=== PATIENT | female | born 1940 | race Caucasian/White ===

== ENCOUNTER 2019-01-27 09:45 | Day surgery (SDC) | payer MEDICARE, BC ==
[2019-01-26 10:14] VITALS: BMI 28.6
[~2019-01-27 09:45] MED LIST: LACTATED RINGERS 1,000 ML IV SCH; LIDOCAINE 1% 20 ML VIAL (10MG/ML) FOR IV START INTRADERMA PRN
[2019-01-27 10:54] VITALS: RESP 16; TEMP 97.4
[2019-01-27] MEDS ORDERED: PROPOFOL 10 MG/ML 20 ML VIAL IV ONE (11:15)
[2019-01-27] MEDS ORDERED: LIDOCAINE 1% INJ 10MG/ML (20 ML MDV) ONE (11:15)
--- NOTE | 2019-01-27 11:33 | P.PCN ---
Date of Procedure: 01/27/19 Procedure(s) Performed: BRIEF HISTORY: Patient is a 78-year-old pleasant male, scheduled for an elective colonoscopy as a part of evaluation of chronic diarrhea for the last 3 months duration. She has almost daily from 5-6 a day which are loose to watery in consistency but no blood or mucus in the stool. She lost 25 pounds since onset of the symptoms. Stool studies were negative. In view of this she is scheduled for colonoscopy to Rey further. PROCEDURE PERFORMED: Colonoscopy with random biopsies. PREOPERATIVE DIAGNOSIS: Diarrhea and weight loss of 3 months duration. IV sedation per Anesthesia. PROCEDURE: After informed consent was obtained, the patient, was brought into the endoscopy unit. IV sedation was administered by Anesthesia under continuous monitoring. Digital rectal examination was normal. Initially the Olympus CF-160 flexible video colonoscope was then inserted in the rectum, gradually advanced into the cecum without any difficulty. Careful examination was performed as the scope was gradually being withdrawn. Ileocecal valve and the appendiceal orifice were visualized and appeared normal. Prep was excellent. Mucosa of the cecum, ascending colon, transverse colon, descending colon, sigmoid colon, and rectum appeared normal. Scattered sigmoid diverticula seen. Random biopsies were done from ascending and descending colon to rule out microscopic/collagenous colitis. Retroflexion was performed in the rectum and no lesions were seen. The patient tolerated the procedure well. IMPRESSION: Normal-appearing colon from rectum to cecum with no evidence of colitis or colorectal neoplasia . Diffuse scattered diverticulosis. RECOMMENDATIONS: Findings of this examination were discussed with the patient as well as her family. She was advised to follow with the biopsy results. In the meantime we will obtain labs for celiac serology and she'll be seen in o ffice in 1 week..
[2019-01-27 11:58] VITALS: BP 118/76; PULSE 74
[2019-01-27 20:21] LABS: Gliadin AB IgA, Deaminated NEGATIVE (NEGATIVE); Gliadin AB IgA, Unit 0.4 U/mL
[2019-01-27 20:24] LABS: Gliadin AB IgG, Deaminated NEGATIVE (NEGATIVE)
== END 2019-01-27 12:49 | disposition home or self-care (01) ==
LOC: ORWHC2ENDO 09:45
PROVIDERS: ATTEND Internal Medicine Gastroenterology
DX: K52.832 Lymphocytic colitis (principal); K57.30 Diverticulosis of large intestine without perforation or abscess without bleeding; I48.91 Unspecified atrial fibrillation; I10 Essential (primary) hypertension; E78.5 Hyperlipidemia, unspecified; Z79.01 Long term (current) use of anticoagulants; Z79.890 Hormone replacement therapy; Z79.899 Other long term (current) drug therapy; R63.4 Abnormal weight loss; Z68.27 Body mass index [BMI] 27.0-27.9, adult
CPT/HCPCS: 88305; 83516 ×4; 45380; J2001; J2704

== ENCOUNTER 2023-10-09 09:58 | Emergency (ER) | payer MEDICARE, BC ==
--- NOTE | 2023-10-09 10:53 | ED ---
Arrhythmia/Palpitations HPI - General Chief Complaint: Arrhythmia/Palpitations Stated Complaint: Abn Labs Time Seen by Provider: 10/09/23 10:12 Source: patient, RN notes reviewed Mode of arrival: ambulatory Limitations: no limitations - History of Present Illness Initial Comments: This is an 83-year-old female with history of A-fib on Xarelto who presents emergency department chief complaint of heart palpitations. Patient states that over the past 3 weeks, that are heart rate has been elevated while she is checking her blood pressure at home ranging in the high 90s into the 120s. Patient states that she will experience heart palpitations during the day. She denies current chest pain or pressure, dizziness, lightheadedness, exertional dyspnea, paroxysmal nocturnal dyspnea, extremity edema. Patient saw her tie bucker on Friday where they increased the dose of her metoprolol to 25 mg 2 times a day. She states that she took 3 tabs of the 25 mg this morning. - Related Data Home Medications Medication Instructions Recorded Confirmed Levothyroxine Sodium [Synthroid] 75 mcg PO DAILY 09/29/15 10/09/23 Ascorbic Acid [Vitamin C] 500 mg PO DAILY 11/28/22 10/09/23 Cholecalciferol [Vitamin D3 (25 25 mcg PO DAILY 11/28/22 10/09/23 Mcg = 1000 Iu)] Latanoprost Ophth [Xalatan 0.005%] 1 drop BOTH EYES HS 11/28/22 10/09/23 diphenhydrAMINE [Benadryl] 25 mg PO HS 11/28/22 10/09/23 Apixaban [Eliquis] 2.5 mg PO BID 10/09/23 10/09/23 Atorvastatin [Lipitor] 40 mg PO DAILY 10/09/23 10/09/23 Budesonide [Entocort EC] See Taper PO DIRECTED 10/09/23 10/09/23 Diclofenac Sodium Gel [Voltaren 1% 1 applic TOPICAL QID PRN 10/09/23 10/09/23 Gel] Dorzolamide 2% [Trusopt 2%] 1 drops BOTH EYES BID 10/09/23 10/09/23 Furosemide [Lasix] 20 mg PO DAILY 10/09/23 10/09/23 Magnesium Citrate and Oxide 250 mg PO DAILY 10/09/23 10/09/23 [Magnesium] Metoprolol Succinate [Metoprolol 25 mg PO DAILY 10/09/23 10/09/23 Succinate ER] NIFEdipine XL [Procardia Xl] 30 mg PO DAILY 10/09/23 10/09/23 Vit C/E/Zn/Coppr/Lutein/Zeaxan 1 cap PO BID 10/09/23 10/09/23 [Preservision Areds 2 Softgel] Vitamin C/Biotin [Hair, Skin and 1 tab PO DAILY 10/09/23 10/09/23 Nails Chew] Allergies Allergy/AdvReac Type Severity Reaction Status Date / Time latex Allergy red skin Verified 10/09/23 13:12 and itching Review of Systems ROS Statement: Those systems with pertinent positive or pertinent negative responses have been documented in the HPI. ROS Other: All systems not noted in ROS Statement are negative. Past Medical History Past Medical History: Atrial Fibrillation, Cancer, Eye Disorder, Hyperlipidemia, Hypertension, Osteoarthritis (OA), Pneumonia, Renal Disease, Thyroid Disorder Additional Past Medical History / Comment(s): L breast cancer with mastectomy, stage 1 R breast cancer-removed during bx, pneumonia with sepsis, lymphatic colitis - under control, glaucoma, macular degeneration, watching kidney numbers - stage [address] Rajput in [place], some elevation in cholesterol but pt does not want to take medication. edema to ankles by mid day. urinary frequency History of Any Multi-Drug Resistant Organisms: None Reported Past Surgical History: Adenoidectomy, Cardiac Valve Replacement, Cholecystectomy, Heart Catheterization, Tonsillectomy Additional Past Surgical History / Comment(s): L mastectomy, R breast bx, bilateral cataracts, colonoscopy, endometrial cyst removed, mitral valve replacement 2015 Past Anesthesia/Blood Transfusion Reactions: No Reported Reaction Past Psychological History: No Psychological Hx Reported Smoking Status: Former smoker - Past Family History Father Family Medical History: Cancer Additional Family Medical History / Comment(s): Father in his mid 70's of metastatic prostate cancer. Mother Family Medical History: No Reported History Additional Family Medical History / Comment(s): Mother at age 100yrs. General Exam Limitations: no limitations General appearance: alert, in no apparent distress Head exam: Present: atraumatic, normocephalic, normal inspection Eye exam: Present: normal appearance, PERRL, EOMI. Absent: scleral icterus, c onjunctival injection, periorbital swelling ENT exam: Present: normal exam, mucous membranes moist Neck exam: Present: normal inspection. Absent: tenderness, meningismus, lymphadenopathy Respiratory exam: Present: normal lung sounds bilaterally. Absent: respiratory distress, wheezes, rales, rhonchi, stridor Cardiovascular Exam: Present: irregular rhythm (Atrial fibrillation). Absent: regular rate, normal rhythm GI/Abdominal exam: Present: soft, normal bowel sounds. Absent: distended, tenderness, guarding, rebound, rigid Extremities exam: Present: normal inspection, full ROM, normal capillary refill. Absent: tenderness, pedal edema, joint swelling, calf tenderness Back exam: Present: normal inspection Neurological exam: Present: alert, oriented X3, CN II-XII intact Psychiatric exam: Present: normal affect, normal mood Skin exam: Present: warm, dry, intact, normal color. Absent: rash Course Vital Signs 10/09/23 10/09/23 10/09/23 10:15 14:35 16:10 Temperature 97.5 F L Pulse Rate 73 114 H 107 H Respiratory 16 16 16 Rate Blood Pressure 137/77 136/75 124/82 O2 Sat by Pulse 97 97 96 Oximetry Medical Decision Making - Medical Decision Making Was pt. sent in by a medical professional or institution (, PA, BOTTLE INSPECTOR, urgent care, hospital, or fdc...) When possible be specific @ -No Did you speak to anyone other than the patient for history (EMS, parent, family, police, friend...)? What history was obtained from this source @ -No Did you review nursing and triage notes (agree or disagree)? Why? @ -I reviewed and agree with nursing and triage notes Were old charts reviewed (outside hosp., previous admission, EMS record, old EKG, old radiological studies, urgent care reports/EKG's, fdc records)? Report findings @ -No old charts were reviewed Differential Diagnosis (chest pain, altered mental status, abdominal pain women, abdominal pain men, vaginal bleeding, weakness, fever, dyspnea, syncope, headache, dizziness, GI bleed, back pain, seizure, CVA, palpatations, mental health, musculoskeletal)? @ -Differential Palpitations Ventricular arrhythmias, atrial arrhythmias, myocardial infarction, anemia, thyrotoxicosis, electrolyte imbalance, hypokalemia, pulmonary embolism, pulmonar y disease, drugs, alcohol, anxiety, stress.... This is not meant to be an all-inclusive list. EKG interpreted by me (3pts min.). @ -Completed at 1024, show fibrillation, right bundle branch block, ventricular rate 74. X-rays interpreted by me (1pt min.). @ -None done CT interpreted by me (1pt min.). @ -None done U/S interpreted by me (1pt. min.). @ -None done What testing was considered but not performed or refused? (CT, X-rays, U/S, labs)? Why? @ -None What meds were considered but not given or refused? Why? @ -None Did you discuss the management of the patient with other professionals (prof raj i.e. , PA, BOTTLE INSPECTOR, lab, RT, psych nurse, secondary social studies teacher, illuminating engineer, teacher, loan servicing officer, renal case manager)? Give summary @ -No Was smoking cessation discussed for >3mins.? @ -No Was critical care preformed (if so, how long)? @ -No Were there social determinants of health that impacted care today? How? (Homelessness, low income, unemployed, alcoholism, drug addiction, transportation, low edu. Level, literacy, decrease access to med. care, half-way, rehab)? @ -No Was there de-escalation of care discussed even if they declined (Discuss DNR or withdrawal of care, Hospice)? DNR status @ -No What co-morbidities impacted this encounter? (DM, HTN, Smoking, COPD, CAD, Cancer, CVA, ARF, Chemo, Hep., AIDS, mental health diagnosis, sleep apnea, morbid obesity)? @ -None Was patient admitted / discharged? Hospital course, mention meds given and route, prescriptions, significant lab abnormalities, going to OR and other pertinent info. @ -83-year-old female with palpitations. On initial review of patient's vitals her heart rate is stable. EKG obtained in addition to labs, patient is in agreement. EKG shows atrial fibrillation without rapid ventricular response. During auscultation patient's heart rate is in the 70s. CBC unremarkable, CMP reveals elevated BUN of 45 and creatinine 2.07 which is similar to previous and correlates with diagnosis of chronic kidney disease. troponin nonelevated. Discussion with patient at bedside recommend continuing to take 3 tablets of the metoprolol until she is able to report to her tie bucker for further evaluation. Patient is asymptomatic during her duration on the emergency department and is comfortable with discharge. All questions answered at bedside, strict return parameters discussed with the patient. Case discussed with Dr. Kent Undiagnosed new problem with uncertain prognosis? @ -No Drug Therapy requiring intensive monitoring for toxicity (Heparin, Nitro, Insulin, Cardizem)? @ -No Were any procedures done? @ -No Diagnosis/symptom? @ -Atrial fibrillation, palpitations Acute, or Chronic, or Acute on Chronic? @ -Acute Uncomplicated (without systemic symptoms) or Complicated (systemic symptoms)? @ -Uncomplicated Side effects of treatment? @ -No Exacerbation, Progression, or Severe Exacerbation? @ -No Poses a threat to life or bodily function? How? (Chest pain, [place], [place], pneumonia, PE, COPD, DKA, ARF, appy, cholecystitis, CVA, Diverticulitis, Homicidal, Suicidal, threat to staff... and all critical care pts) @ -No - Lab Data Result diagrams: 10/09/23 11:23 10/09/23 11:23 Lab Results 10/09/23 10/09/23 10/09/23 Range/Units 11:23 11:23 11:23 WBC 9.5 (3.8-10.6) k/uL RBC 3.73 L (3.80-5.40) m/uL Hgb 11.5 (11.4-16.0) gm/dL Hct 37.1 (34.0-46.0) % MCV 99.3 (80.0-100.0) fL MCH 30.9 (25.0-35.0) pg MCHC 31.1 (31.0-37.0) g/dL RDW 16.1 H (11.5-15.5) % Plt Count 254 (150-450) k/uL MPV 8.5 Neutrophils % 76 % Lymphocytes % 15 % Monocytes % 6 % Eosinophils % 2 % Basophils % 0 % Neutrophils # 7.2 (1.3-7.7) k/uL Lymphocytes # 1.4 (1.0-4.8) k/uL Monocytes # 0.6 (0-1.0) k/uL Eosinophils # 0.2 (0-0.7) k/uL Basophils # 0.0 (0-0.2) k/uL Hypochromasia Slight Anisocytosis Slight Macrocytosis Slight Sodium 141 (137-145) mmol/L Potassium 3.8 (3.5-5.1) mmol/L Chloride 110 H (98-107) mmol/L Carbon Dioxide 25 (22-30) mmol/L Anion Gap 6 mmol/L BUN 45 H (7-17) mg/dL Creatinine 2.07 H (0.52-1.04) mg/dL Est GFR (CKD-EPI)AfAm 25 (>60 ml/min/1.73 sqM) Est GFR (CKD-EPI)NonAf 22 (>60 ml/min/1.73 sqM) Glucose 84 (74-99) mg/dL Calcium 9.2 (8.4-10.2) mg/dL Magnesium 1.8 (1.6-2.3) mg/dL Total Bilirubin 0.5 (0.2-1.3) mg/dL AST 39 H (14-36) U/L ALT 57 H (4-34) U/L Alkaline Phosphatase 110 (38-126) U/L Troponin I <0.012 (0.000-0.034) ng/mL Total Protein 7.4 (6.3-8.2) g/dL Albumin 3.8 (3.5-5.0) g/dL Disposition Clinical Impression: Atrial fibrillation, Tachycardia, Heart palpitations Narrative: Return to the emergency department symptoms worsen or do not improve. Follow-up with your tie bucker for further recommendation and adjustment of your medications. Disposition: HOME SELF-CARE Condition: Good Instructions (If sedation given, give patient instructions): Heart Palpitations (ED) Is patient prescribed a controlled substance at d/c from ED?: No Referrals: Roland Meehan MD [Primary Care Provider] - 1-2 days Time of Disposition: 15:55
[2023-10-09 11:12] VITALS: RESP 16; TEMP 97.5
[2023-10-09 11:52] LABS: ALT 57 U/L (4-34); AST 39 U/L (14-36); African American GFR (CKD) 25 (>60 ml/min/1.73 sqM); Albumin 3.8 g/dL (3.5-5.0); Alkaline Phosphatase 110 U/L (38-126); Anion Gap 6 mmol/L; Blood Urea Nitrogen 45 mg/dL (7-17); Calcium 9.2 mg/dL (8.4-10.2); Carbon Dioxide 25 mmol/L (22-30); Chloride 110 mmol/L (98-107); Glucose 84 mg/dL (74-99); Magnesium 1.8 mg/dL (1.6-2.3); Non-African American GFR(CKD) 22 (>60 ml/min/1.73 sqM); Potassium 3.8 mmol/L (3.5-5.1); Sodium 141 mmol/L (137-145); Total Bilirubin 0.5 mg/dL (0.2-1.3); Total Protein 7.4 g/dL (6.3-8.2)
[2023-10-09 12:01] LABS: Anisocytosis Slight; Basophils % (A) 0 %; Eosinophils # (A) 0.2 k/uL (0-0.7); Eosinophils % (A) 2 %; HCT 37.1 % (34.0-46.0); HGB 11.5 gm/dL (11.4-16.0); Hypochromasia Slight; Lymphocytes # (A) 1.4 k/uL (1.0-4.8); Lymphocytes % (A) 15 %; MCH 30.9 pg (25.0-35.0); MCHC 31.1 g/dL (31.0-37.0); MCV 99.3 fL (80.0-100.0); Macrocytosis Slight; Mean Platelet Volume 8.5; Monocytes # (A) 0.6 k/uL (0-1.0); Monocytes % (A) 6 %; Neutrophils # (A) 7.2 k/uL (1.3-7.7); Neutrophils % (A) 76 %; Platelet Count 254 k/uL (150-450); RBC 3.73 m/uL (3.80-5.40); RDW 16.1 % (11.5-15.5); WBC 9.5 k/uL (3.8-10.6)
[2023-10-09 16:50] VITALS: BP 124/82; PULSE 107
== END 2023-10-09 16:11 | disposition home or self-care (01) ==
LOC: EC 09:58
DX: R00.0 Tachycardia, unspecified (principal); I48.91 Unspecified atrial fibrillation; Z87.891 Personal history of nicotine dependence; Z91.040 Latex allergy status
CPT/HCPCS: 36415; 80053; 83735; 84484; 85025; 93005; 99285

== ENCOUNTER → 2024-10-06 | Outpatient (CLI) | payer MEDICARE, BC ==
--- NOTE | 2024-10-07 06:56 | MR ---
EXAMINATION TYPE: MR brain wo con DATE OF EXAM: 10/06/2024 COMPARISON: NONE HISTORY: Double vision LT, 6th nerve palsy, Hx breast cancer, TECHNIQUE: Multiplanar, multisequence imaging of the brain and brainstem is performed without IV cont rast. FINDINGS: Diffusion weighted images demonstrate no evidence of a recent infarct or other diffusion abnormality. There is moderate ventricular and sulcal prominence. Prominent CSF is seen superiorly. There are smal l foci of T2 hyperintensity scattered throughout the white matter bilaterally. Approximately 10 scatt ered lesions are seen. Midline structures demonstrate normal morphology. The craniocervical junction appears within normal limits. Normal vascular flow voids are present. Left vertebral artery is noted dominant. Bilateral ap hakia is present. Mild mucosal thickening involving bilateral ethmoid sinuses is seen. IMPRESSION: 1. No MRI evidence for recent infarct. 2. Moderate to severe diffuse cerebral atrophy and mild probable chronic small vessel ischemic change s are appreciated. 3. Mild bilateral chronic ethmoid sinusitis. [facility], , 10/07/2024 6:53 AM
== END | disposition home or self-care (01) ==
LOC: RADMRIMAIN 19:38
PROVIDERS: ATTEND Ophthalmology
DX: G31.9 Degenerative disease of nervous system, unspecified (principal); J32.2 Chronic ethmoidal sinusitis; H53.2 Diplopia
CPT/HCPCS: 70551

== ENCOUNTER 2024-11-11 09:21 | Inpatient (IN) | payer MEDICARE, BC ==
[2024-11-11 10:39] LABS: Basophils # (A) 0.06 10*3/uL (0.00-0.10); Basophils % (A) 0.7 %; Eosinophils # (A) 0.16 10*3/uL (0.04-0.35); Eosinophils % (A) 1.9 %; HCT 39.7 % (37.2-46.3); HGB 13.1 g/dL (12.0-15.0); Lymphocytes % (A) 16.5 %; MCH 31.2 pg (27.0-32.0); MCV 94.5 fL (80.0-97.0); Mean Platelet Volume 9.7 fL (9.5-12.2); Monocytes # (A) 0.63 10*3/uL (0.20-1.00); Monocytes % (A) 7.4 %; Neutrophils # (A) 6.21 10*3/uL (1.80-7.70); Neutrophils % (A) 73.3 %; Platelet Count 257 10*3/uL (140-440); RDW 15.3 % (11.5-14.5); WBC 8.48 10*3/uL (4.50-10.00)
--- NOTE | 2024-11-11 10:45 | ED ---
Arrhythmia/Palpitations HPI - General Source: patient, RN notes reviewed Mode of arrival: ambulatory Limitations: no limitations <Maximo Sexton - Last Filed: 11/11/24 10:44> <Valorie Kent - Last Filed: 11/17/24 23:12> - General Chief Complaint: Arrhythmia/Palpitations Stated Complaint: High blood pressure Time Seen by Provider: 11/11/24 09:28 - History of Present Illness Initial Comments: QN- 84-year-old female presents emergency department with chief complaint of hypertension. Patient states that her blood pressure has been elevated she is monitoring at home blood pressure is normally well-controlled she states she was advised to see her heart rate monitored at home by her sanitation technician. Patient does make she has a history of A-fib is on flecainide and had recent increase of her Cardizem. She had issues with metoprolol in the past. She has no complaint of chest pain now but states that she has had some intermittent symptoms. (Maximo Sexton) 84-year-old female presents emergency department with high blood pressure and high heart rate. Patient states as of 2 weeks ago she started to monitor her vitals because her sanitation technician told her to. She has noticed that her blood pressure and heart rate have been high. Patient does have a history of A-fib. They have adjusted around her blood pressure medications. Patient is on flecainide. They increased her Cardizem. Has been taking her medications as instructed with continued high heart rate. She has no chest pain. No headache or visual changes. No other alleviating, precipitating or modifying factors (Valorie Kent) - Related Data Home Medications Medication Instructions Recorded Confirmed Latanoprost Ophth [Xalatan 0.005%] 1 drop BOTH EYES HS 11/28/22 11/11/24 diphenhydrAMINE [Benadryl] 25 mg PO HS 11/28/22 11/11/24 Apixaban [Eliquis] 2.5 mg PO BID 10/09/23 11/11/24 Atorvastatin [Lipitor] 40 mg PO DAILY 10/09/23 11/11/24 Dorzolamide 2% [Trusopt 2%] 1 drop BOTH EYES BID 10/09/23 11/11/24 Furosemide [Lasix] 20 mg PO DAILY 10/09/23 11/11/24 Vit C/E/Zn/Coppr/Lutein/Zeaxan 1 cap PO BID-W/MEALS 10/09/23 11/11/24 [Preservision Areds 2 Softgel] Co Q-10(Unknown Dose) 1 cap PO DAILY 11/11/24 11/11/24 Diclofenac Sodium Gel [Voltaren 1% 1 applic TOPICAL DAILY 11/11/24 11/11/24 Gel] Hair,Skin And Nails(Vitamin 1 tab PO DAILY 11/11/24 11/11/24 D3/Magnesium/Vitamin C/Biotin) Levothyroxine Sodium [Synthroid] 75 mcg PO DAILY 11/11/24 11/11/24 Vitamin B Complex 1 cap PO DAILY 11/11/24 11/11/24 Previous Rx's Medication Instructions Recorded Diltiazem Cd [Cardizem CD] 360 mg PO DAILY #60 cap 11/15/24 Allergies Allergy/AdvReac Type Severity Reaction Status Date / Time amiodarone Allergy Unknown Verified 11/12/24 10:28 latex Allergy red skin Verified 11/11/24 16:47 and itching metoprolol [From Lopressor] Allergy Dyspnea Verified 11/12/24 10:27 sotalol Allergy Dyspnea Verified 11/12/24 10:27 Review of Systems ROS Other: All systems not noted in ROS Statement are negative. <Maximo Sexton - Last Filed: 11/11/24 10:44> ROS Other: All systems not noted in ROS Statement are negative. <Valorie Kent - Last Filed: 11/17/24 23:12> ROS Statement: Those systems with pertinent positive or pertinent negative responses have been documented in the HPI. Past Medical History Past Medical History: Atrial Fibrillation, Cancer, Eye Disorder, Hyperlipidemia, Hypertension, Osteoarthritis (OA), Pneumonia, Renal Disease, Thyroid Disorder Additional Past Medical History / Comment(s): L breast cancer with mastectomy, stage 1 R breast cancer-removed during bx, pneumonia with sepsis, lymphatic colitis - under control, glaucoma, macular degeneration, stage 3 kidney disease, intermittent edema to ankles by mid day. urinary frequency. History of Any Multi-Drug Resistant Organisms: None Reported Past Surgical History: Adenoidectomy, Cardiac Valve Replacement, Cholecystectomy, Heart Catheterization, Tonsillectomy Additional Past Surgical History / Comment(s): L mastectomy, R breast bx, bilateral cataracts, colonoscopy, endometrial cyst removed, mitral valve replacement 2016. November 2022 NATE/cardioversion. Past Anesthesia/Blood Transfusion Reactions: No Reported Reaction Past Psychological History: No Psychological Hx Reported Smoking Status: Former smoker - Past Family History Father Family Medical History: Cancer Additional Family Medical History / Comment(s): Father in his mid 70's of metastatic prostate cancer. Mother Family Medical History: No Reported History Additional Family Medical History / Comment(s): Mother at age 100yrs. <Maximo Sexton - Last Filed: 11/11/24 10:44> General Exam Limitations: no limitations <Maximo Sexton - Last Filed: 11/11/24 10:44> General appearance: alert, in no apparent distress Head exam: Present: atraumatic, normocephalic, normal inspection Eye exam: Present: normal appearance, PERRL, EOMI. Absent: scleral icterus, conjunctival injection, periorbital swelling ENT exam: Present: normal exam, mucous membranes moist Neck exam: Present: normal inspection. Absent: tenderness, meningismus, lympha denopathy Respiratory exam: Present: normal lung sounds bilaterally. Absent: respiratory distress, wheezes, rales, rhonchi, stridor Cardiovascular Exam: Present: tachycardia, irregular rhythm, normal heart sounds. Absent: systolic murmur, diastolic murmur, rubs, gallop, clicks GI/Abdominal exam: Present: soft, normal bowel sounds. Absent: distended, tenderness, guarding, rebound, rigid Extremities exam: Present: normal inspection, full ROM, normal capillary refill. Absent: tenderness, pedal edema, joint swelling, calf tenderness Back exam: Present: normal inspection Neurological exam: Present: alert, oriented X3, CN II-XII intact Psychiatric exam: Present: normal affect, normal mood Skin exam: Present: warm, dry, intact, normal color. Absent: rash <Valorie Kent - Last Filed: 11/17/24 23:12> - General Exam Comments Initial Comments: Visual Physical Exam Vital signs reviewed General: Well-appearing, nontoxic, no acute distress. Head: Normocephalic, atraumatic Eyes: PERRLA, EOMI ENT: Airway patent Chest: Nonlabored breathing Skin: No visual rash, normal skin tone Neuro: Alert and oriented 3 Musculoskeletal: No gross abnormalities (Maximo Sexton) Course Vital Signs 11/11/24 11/11/24 11/11/24 09:36 12:26 13:51 Temperature 97.6 F Pulse Rate 115 H 110 H 80 Pulse Rate [ Log Brander ] Respiratory 16 18 Rate Blood Pressure 150/88 156/94 151/92 O2 Sat by Pulse 97 98 96 Oximetry 11/11/24 11/11/24 11/11/24 16:00 16:05 18:00 Temperature Pulse Rate 74 71 Pulse Rate [ 115 H Log Brander ] Respiratory 16 16 Rate Blood Pressure 145/74 158/86 O2 Sat by Pulse 96 96 Oximetry 11/11/24 11/12/24 11/12/24 20:34 01:00 02:43 Temperature 98.1 F 98.1 F 98.1 F Pulse Rate 89 74 94 Pulse Rate [ Log Brander ] Respiratory 19 17 20 Rate Blood Pressure 154/64 141/59 157/84 O2 Sat by Pulse 96 94 L 96 Oximetry 11/12/24 11/12/24 11/12/24 06:00 09:00 12:00 Temperature Pulse Rate 66 71 90 Pulse Rate [ Log Brander ] Respiratory 17 18 16 Rate Blood Pressure 144/63 159/90 139/78 O2 Sat by Pulse 96 97 97 Oximetry 11/12/24 11/12/24 16:00 17:48 Temperature Pulse Rate 61 63 Pulse Rate [ Log Brander ] Respiratory 18 16 Rate Blood Pressure 130/57 122/59 O2 Sat by Pulse 94 L 95 Oximetry Medical Decision Making - Lab Data Result diagrams: 11/11/24 10:19 <Maximo Sexton - Last Filed: 11/11/24 10:44> - Lab Data Result diagrams: 11/15/24 05:15 11/15/24 05:15 <Valorie Kent - Last Filed: 11/17/24 23:12> - Medical Decision Making I completed the quick note portion of this chart signed Maximo Sexton PA-C (Maximo Sexton) Was pt. sent in by a medical professional or institution (SURINDER Donohue, AUTO MECHANICS INSTRUCTOR, urgent care, hospital, or assisted...) When possible be specific @ -Patient was sent in by her cardiology office Did you speak to anyone other than the patient for history (EMS, parent, family, police, friend...)? What history was obtained from this source @ -No Did you review nursing and triage notes (agree or disagree)? Why? @ -I reviewed and agree with nursing and triage notes Were old charts reviewed (outside hosp., previous admission, EMS record, old EKG, old radiological studies, urgent care reports/EKG's, assisted records)? Report findings @ -No old charts were reviewed Differential Diagnosis (chest pain, altered mental status, abdominal pain women, abdominal pain men, vaginal bleeding, weakness, fever, dyspnea, syncope, headache, dizziness, GI bleed, back pain, seizure, CVA, palpatations, mental health, musculoskeletal)? @ -Differential Palpitations Ventricular arrhythmias, atrial arrhythmias, myocardial infarction, anemia, thyrotoxicosis, electrolyte imbalance, hypokalemia, pulmonary embolism, p ulmonary disease, drugs, alcohol, anxiety, stress.... This is not meant to be an all-inclusive list. EKG interpreted by me (3pts min.). @ -Yes and demonstrates A-fib with a rate of 116. NM interval 238. QRS 161. QTc of 440. Right bundle branch block. Left anterior fascicular block X-rays interpreted by me (1pt min.). @ -Not done CT interpreted by me (1pt min.). @ -None done U/S interpreted by me (1pt. min.). @ -None done What testing was considered but not performed or refused? (CT, X-rays, U/S, labs)? Why? @ -None What meds were considered but not given or refused? Why? @ -None Did you discuss the management of the patient with other professionals (professionals i.e. , PA, AUTO MECHANICS INSTRUCTOR, lab, RT, psych nurse, home health care social worker, auto mechanics instructor, teacher, licensed mortgage loan officer, keycase assembler)? Give summary @ -I spoke with Dr. Wyatt. He would like me to place the patient on a Cardizem drip. He recommends continuing the flecainide. He would like me to increase the Eliquis to 5 mg twice daily. He would like the patient admitted for cardioversion tomorrow Was smoking cessation discussed for >3mins.? @ -No Was critical care preformed (if so, how long)? @ -Yes, 35 minutes for management of A-fib with RVR Were there social determinants of health that impacted care today? How? (Homelessness, low income, unemployed, alcoholism, drug addiction, transportation, low edu. Level, literacy, decrease access to med. care, half-way, rehab)? @ -No Was there de-escalation of care discussed even if they declined (Discuss DNR or withdrawal of care, Hospice)? DNR status @ -No What co-morbidities impacted this encounter? (DM, HTN, Smoking, COPD, CAD, Cancer, CVA, ARF, Chemo, Hep., AIDS, mental health diagnosis, sleep apnea, morbid obesity)? @ -A-fib Was patient admitted / discharged? Hospital course, mention meds given and route, prescriptions, significant lab abnormalities, going to OR and other per tinent info. @ -Upon arrival patient seen and evaluated in hallway 19. Thorough history and physical exam was performed. IV access was established and laboratory studies are conducted. The results are discussed with Dr. Wyatt. He does recommend a Cardizem drip with admission for cardioversion tomorrow Undiagnosed new problem with uncertain prognosis? @ -No Drug Therapy requiring intensive monitoring for toxicity (Heparin, Nitro, Insulin, Cardizem)? @ -Cardizem Were any procedures done? @ -No Diagnosis/symptom? @ -A-fib with RVR Acute, or Chronic, or Acute on Chronic? @ -Acute on chronic Uncomplicated (without systemic symptoms) or Complicated (systemic symptoms)? @ -Complicated Side effects of treatment? @ -No Exacerbation, Progression, or Severe Exacerbation? @ -No Poses a threat to life or bodily function? How? (Chest pain, [place], [place], pneumonia, PE, COPD, DKA, ARF, appy, cholecystitis, CVA, Diverticulitis, Homicidal, Suicidal, threat to staff... and all critical care pts) @ -Yes this patient does have rapid heart rate (Valorie Kent) - Lab Data Lab Results 11/11/24 11/11/24 11/11/24 Range/Units 10:19 10:19 10:19 WBC 8.48 (4.50-10.00) 10*3/uL RBC 4.20 (4.10-5.20) 10*6/uL Hgb 13.1 (12.0-15.0) g/dL Hct 39.7 (37.2-46.3) % MCV 94.5 (80.0-97.0) fL MCH 31.2 (27.0-32.0) pg MCHC 33.0 (32.0-37.0) g/dL Plt Count 257 (140-440) 10*3/uL MPV 9.7 (9.5-12.2) fL Immature Gran % (Auto) 0.2 % Neutrophils % 73.3 % Lymphocytes % 16.5 % Monocytes % 7.4 % Eosinophils % 1.9 % Basophils % 0.7 % Immature Gran # 0.02 (0.00-0.04) 10*3/uL Neutrophils # 6.21 (1.80-7.70) 10*3/uL Lymphocytes # 1.40 (0.90-5.00) 10*3/uL Monocytes # 0.63 (0.20-1.00) 10*3/uL Eosinophils # 0.16 (0.04-0.35) 10*3/uL Basophils # 0.06 (0.00-0.10) 10*3/uL PT 11.1 (10.0-12.5) sec INR 1.0 (<1.2) APTT 30.8 H (22.0-30.0) sec Sodium 143 (137-145) mmol/L Potassium 4.0 (3.5-5.1) mmol/L Chloride 110 H (98-107) mmol/L Carbon Dioxide 22 (22-30) mmol/L Anion Gap 11 mmol/L BUN 32 H (7-17) mg/dL Creatinine 1.68 H (0.52-1.04) mg/dL Est GFR (CKD-EPI)AfAm 32 (>60 ml/min/1.73 sqM) Est GFR (CKD-EPI)NonAf 28 (>60 ml/min/1.73 sqM) Glucose 68 L (74-99) mg/dL Calcium 9.8 (8.4-10.2) mg/dL Magnesium 1.9 (1.6-2.3) mg/dL Total Bilirubin 0.8 (0.2-1.3) mg/dL AST 30 (14-36) U/L ALT 24 (4-34) U/L Alkaline Phosphatase 116 (38-126) U/L Troponin I (0.000-0.034) ng/mL Total Protein 8.3 H (6.3-8.2) g/dL Albumin 4.6 (3.5-5.0) g/dL TSH (0.465-4.680) mIU/L 11/11/24 11/11/24 11/12/24 Range/Units 10:19 12:30 09:55 WBC 7.76 (4.50-10.00) 10*3/uL RBC 3.90 L (4.10-5.20) 10*6/uL Hgb 12.2 (12.0-15.0) g/dL Hct 37.3 (37.2-46.3) % MCV 95.6 (80.0-97.0) fL MCH 31.3 (27.0-32.0) pg MCHC 32.7 (32.0-37.0) g/dL Plt Count 251 (140-440) 10*3/uL MPV 9.5 (9.5-12.2) fL Immature Gran % (Auto) 0.4 % Neutrophils % 75.0 % Lymphocytes % 18.4 % Monocytes % 3.6 % Eosinophils % 1.8 % Basophils % 0.8 % Immature Gran # 0.03 (0.00-0.04) 10*3/uL Neutrophils # 5.82 (1.80-7.70) 10*3/uL Lymphocytes # 1.43 (0.90-5.00) 10*3/uL Monocytes # 0.28 (0.20-1.00) 10*3/uL Eosinophils # 0.14 (0.04-0.35) 10*3/uL Basophils # 0.06 (0.00-0.10) 10*3/uL PT (10.0-12.5) sec INR (<1.2) APTT (22.0-30.0) sec Sodium (137-145) mmol/L Potassium (3.5-5.1) mmol/L Chloride (98-107) mmol/L Carbon Dioxide (22-30) mmol/L Anion Gap mmol/L BUN (7-17) mg/dL Creatinine (0.52-1.04) mg/dL Est GFR (CKD-EPI)AfAm (>60 ml/min/1.73 sqM) Est GFR (CKD-EPI)NonAf (>60 ml/min/1.73 sqM) Glucose (74-99) mg/dL Calcium (8.4-10.2) mg/dL Magnesium (1.6-2.3) mg/dL Total Bilirubin (0.2-1.3) mg/dL AST (14-36) U/L ALT (4-34) U/L Alkaline Phosphatase (38-126) U/L Troponin I <0.012 (0.000-0.034) ng/mL Total Protein (6.3-8.2) g/dL Albumin (3.5-5.0) g/dL TSH 3.820 (0.465-4.680) mIU/L 11/12/24 Range/Units 09:55 WBC (4.50-10.00) 10*3/uL RBC (4.10-5.20) 10*6/uL Hgb (12.0-15.0) g/dL Hct (37.2-46.3) % MCV (80.0-97.0) fL MCH (27.0-32.0) pg MCHC (32.0-37.0) g/dL Plt Count (140-440) 10*3/uL MPV (9.5-12.2) fL Immature Gran % (Auto) % Neutrophils % % Lymphocytes % % Monocytes % % Eosinophils % % Basophils % % Immature Gran # (0.00-0.04) 10*3/uL Neutrophils # (1.80-7.70) 10*3/uL Lymphocytes # (0.90-5.00) 10*3/uL Monocytes # (0.20-1.00) 10*3/uL Eosinophils # (0.04-0.35) 10*3/uL Basophils # (0.00-0.10) 10*3/uL PT (10.0-12.5) sec INR (<1.2) APTT (22.0-30.0) sec Sodium 141 (137-145) mmol/L Potassium 4.1 (3.5-5.1) mmol/L Chloride 111 H (98-107) mmol/L Carbon Dioxide 20 L (22-30) mmol/L Anion Gap 10 mmol/L BUN 26 H (7-17) mg/dL Creatinine 1.40 H (0.52-1.04) mg/dL Est GFR (CKD-EPI)AfAm 40 (>60 ml/min/1.73 sqM) Est GFR (CKD-EPI)NonAf 34 (>60 ml/min/1.73 sqM) Glucose 135 H (74-99) mg/dL Calcium 9.6 (8.4-10.2) mg/dL Magnesium (1.6-2.3) mg/dL Total Bilirubin (0.2-1.3) mg/dL AST (14-36) U/L ALT (4-34) U/L Alkaline Phosphatase (38-126) U/L Troponin I (0.000-0.034) ng/mL Total Protein (6.3-8.2) g/dL Albumin (3.5-5.0) g/dL TSH (0.465-4.680) mIU/L Disposition <Maximo Sexton - Last Filed: 11/11/24 10:44> Is patient prescribed a controlled substance at d/c from ED?: No Time of Disposition: 15:33 Decision to Admit Reason: Admit from EC Decision Date: 11/11/24 Decision Time: 15:33 <Valorie Kent - Last Filed: 11/17/24 23:12> Clinical Impression: Atrial fibrillation with RVR Disposition: ADMITTED IP TO THIS HOSP Condition: Stable
[2024-11-11 10:47] LABS: Partial Thromboplastin Time 30.8 sec (22.0-30.0); Prothrombin Time 11.1 sec (10.0-12.5)
[2024-11-11 10:51] LABS: ALT 24 U/L (4-34); AST 30 U/L (14-36); African American GFR (CKD) 32 (>60 ml/min/1.73 sqM); Albumin 4.6 g/dL (3.5-5.0); Alkaline Phosphatase 116 U/L (38-126); Anion Gap 11 mmol/L; Blood Urea Nitrogen 32 mg/dL (7-17); Calcium 9.8 mg/dL (8.4-10.2); Carbon Dioxide 22 mmol/L (22-30); Chloride 110 mmol/L (98-107); Glucose 68 mg/dL (74-99); Magnesium 1.9 mg/dL (1.6-2.3); Non-African American GFR(CKD) 28 (>60 ml/min/1.73 sqM); Sodium 143 mmol/L (137-145); Total Bilirubin 0.8 mg/dL (0.2-1.3); Total Protein 8.3 g/dL (6.3-8.2)
[2024-11-11] MEDS ORDERED: NALOXONE 0.4 MG/ML 1 ML VIAL IV PRN (15:33)
[2024-11-11] MEDS: DILTIAZEM 125 MG in DEXTROSE 5% IN WATER 100 ML IV SCH (15:56)
[2024-11-11] MEDS: APIXABAN 2.5 MG TABLET PO SCH (20:32)
[2024-11-11] MEDS: FLECAINIDE 50 MG TAB PO SCH (20:32)
[2024-11-11] MEDS ORDERED: APIXABAN 5 MG TAB PO SCH (21:00)
[2024-11-12] MEDS: DILTIAZEM CD 180 MG CAP.ER.24H PO SCH (08:21)
[2024-11-12] MEDS: ATORVASTATIN 40 MG TAB PO SCH (08:22)
[2024-11-12] MEDS: LEVOTHYROXINE 75 MCG TAB PO SCH (08:22)
[2024-11-12] MEDS ORDERED: METOPROLOL TARTRATE 50 MG TAB PO SCH (09:00)
[2024-11-12] MEDS: FUROSEMIDE 20 MG TAB PO SCH (10:03)
--- NOTE | 2024-11-12 10:27 | P.CRDCN ---
History of Present Illness History of present illness: HISTORY OF PRESENT ILLNESS: This is a 84-year-old female with a past medical history significant for mild cardiomyopathy with recovered EF, chronic kidney disease, valvular heart disease, atrial fibrillation, and mitral valve replacement in 2016 in [place]. Patient follows in the office with Dr. Aragon. We have been asked to see the patient in consultation for atrial fibrillation. Patient examined at the bedside in the emergency room. Patient initially presented to the hospital with a chief complaint of palpitations. Patient denies having any chest pain or shortness of breath. She denies any dizziness or lightheadedness. EKG on admission reveals 2-1 atrial tachycardia. She was started on IV Cardizem which is currently infusing at 5 mg an hour. Patient does have an intolerance to sotalol and has had significant shortness of breath in the past when prescribed this. Ad ditionally she had history of liver issues with amiodarone in [place]. Patient does have a history of loop recorder implantation as well. Patient does have a history of cardioversion. However she has not underwent ablations in the past. DIAGNOSTICS: - EKG reveals 2-1 atrial tachycardia. - Laboratory data: WBC 8.48. Hemoglobin 13.1. Platelet count 257. Sodium 143. Potassium 4.0. BUN 32. Creatinine 1.68. Troponin negative x 1. TSH 3.820. - Current home cardiac medications include Eliquis 2.5 mg twice a day, Lipitor 40 mg daily, Cardizem CD 240 mg daily, Lasix 20 mg daily. - Most recent echocardiogram obtained in October 2022 revealed ejection fraction 55 to 60%, moderate tricuspid regurgitation, moderate aortic regurgitation, biological mitral valve prosthesis - Cardiac catheterization history: Patient denies Physical exam: CONSTITUTIONAL: Denies fever or chills. HEENT: Denies blurred vision, vision changes, or eye pain. Denies hemoptysis CARDIOVASCULAR: Denies chest pain. Denies orthopnea. Denies PND. Denies palpitations RESPIRATORY: Denies shortness of breath. GASTROINTESTINAL: Denies abdominal pain. Denies nausea or vomiting. HEMATOLOGIC: Denies bleeding disorders. GENITOURINARY: Denies any blood in urine. SKIN: Denies pruitis. Denies rash. PHYSICAL EXAM: VITAL SIGNS: Reviewed. GENERAL: Well-developed in no acute distress. HEENT: Head is normocephalic. Pupils are equal, round. Sclerae anicteric. Mucous membranes of the mouth are moist. Neck supple. No JVD or thyromegaly LUNGS: Respirations even and unlabored. Lungs essentially clear to auscultation bilaterally. HEART: Mildly tachycardic. Irregular rate and rhythm. S1 and S2 heard. ABDOMEN: Soft. Nondistended. Nontender. EXTREMITIES: Normal range of motion. No clubbing or cyanosis. Peripheral pulses intact. No lower extremity edema NEUROLOGIC: Awake and alert. Oriented x 3. ASSESSMENT: Palpitations 2-1 atrial tachycardia History of atrial fibrillation/flutter Chronic kidney disease History of mitral valve replacement in 2016 in [place] Intolerance to beta-blockers including metoprolol and sotalol Adverse reactions to amiodarone resulting in elevated LFTs PLAN: Discontinue IV Cardizem Patient has adverse reactions to amiodarone resulting in elevated LFTs Additionally she is intolerant to beta-blockers including metoprolol and sotalol and gets significant shortness of breath Increase Cardizem CD to 360 mg daily Discontinue flecainide Continue to monitor patient for additional 24 hours Further recommendations pending patient course Nurse practitioner note has been reviewed by physician. Signing provider agrees with the documented findings, assessment, and plan of care documented by DRY FINISHER as a scribe. Past Medical History Past Medical History: Atrial Fibrillation, Cancer, Eye Disorder, Hyperlipidemia, Hypertension, Osteoarthritis (OA), Pneumonia, Renal Disease, Thyroid Disorder Additional Past Medical History / Comment(s): L breast cancer with mastectomy, stage 1 R breast cancer-removed during bx, pneumonia with sepsis, lymphatic colitis - under control, glaucoma, macular degeneration, stage 3 kidney disease, intermittent edema to ankles by mid day. urinary frequency. History of Any Multi-Drug Resistant Organisms: None Reported Past Surgical History: Adenoidectomy, Cardiac Valve Replacement, Cholecystectomy, Heart Catheterization, Tonsillectomy Additional Past Surgical History / Comment(s): L mastectomy, R breast bx, bilate ral cataracts, colonoscopy, endometrial cyst removed, mitral valve replacement 2015. November 2022 NATE/cardioversion. Past Anesthesia/Blood Transfusion Reactions: No Reported Reaction Past Psychological History: No Psychological Hx Reported Smoking Status: Former smoker - Past Family History Father Family Medical History: Cancer Additional Family Medical History / Comment(s): Father in his mid 70's of metastatic prostate cancer. Mother Family Medical History: No Reported History Additional Family Medical History / Comment(s): Mother at age 100yrs. Medications and Allergies Home Medications Medication Instructions Recorded Confirmed Type Latanoprost Ophth [Xalatan 0.005%] 1 drop BOTH EYES HS 11/28/22 11/11/24 History diphenhydrAMINE [Benadryl] 25 mg PO HS 11/28/22 11/11/24 History Apixaban [Eliquis] 2.5 mg PO BID 10/09/23 11/11/24 History Atorvastatin [Lipitor] 40 mg PO DAILY 10/09/23 11/11/24 History Dorzolamide 2% [Trusopt 2%] 1 drop BOTH EYES BID 10/09/23 11/11/24 History Furosemide [Lasix] 20 mg PO DAILY 10/09/23 11/11/24 History Vit C/E/Zn/Coppr/Lutein/Zeaxan 1 cap PO BID-W/MEALS 10/09/23 11/11/24 History [Preservision Areds 2 Softgel] Flecainide Acetate 50 mg PO Q12H 10/29/23 11/11/24 History Co Q-10(Unknown Dose) 1 cap PO DAILY 11/11/24 11/11/24 History Diclofenac Sodium Gel [Voltaren 1% 1 applic TOPICAL DAILY 11/11/24 11/11/24 History Gel] Diltiazem Cd [Cardizem CD] 240 mg PO DAILY 11/11/24 11/11/24 History Hair,Skin And Nails(Vitamin 1 tab PO DAILY 11/11/24 11/11/24 History D3/Magnesium/Vitamin C/Biotin) Levothyroxine Sodium [Synthroid] 75 mcg PO DAILY 11/11/24 11/11/24 History Vitamin B Complex 1 cap PO DAILY 11/11/24 11/11/24 History Allergies Allergy/AdvReac Type Severity Reaction Status Date / Time latex Allergy red skin Verified 11/11/24 16:47 and itching Physical Exam Vitals: Vital Signs Temp Pulse Pulse Resp BP Pulse Ox 11/12/24 06:00 66 17 144/63 96 11/12/24 02:43 98.1 F 94 20 157/84 96 11/12/24 01:00 98.1 F 74 17 141/59 94 L 11/11/24 20:34 98.1 F 89 19 154/64 96 11/11/24 18:00 71 16 158/86 96 11/11/24 16:05 115 H 11/11/24 16:00 74 16 145/74 96 11/11/24 13:51 80 151/92 96 11/11/24 12:26 110 H 18 156/94 98 11/11/24 09:36 97.6 F 115 H 16 150/88 97 Results 11/11/24 10:19 11/11/24 10:19 Cardiac Enzymes 11/11/24 11/11/24 Range/Units 10:19 10:19 AST 30 (14-36) U/L Troponin I <0.012 (0.000-0.034) ng/mL Coagulation 11/11/24 Range/Units 10:19 PT 11.1 (10.0-12.5) sec APTT 30.8 H (22.0-30.0) sec CBC 11/11/24 Range/Units 10:19 WBC 8.48 (4.50-10.00) 10*3/uL RBC 4.20 (4.10-5.20) 10*6/uL Hgb 13.1 (12.0-15.0) g/dL Hct 39.7 (37.2-46.3) % Plt Count 257 (140-440) 10*3/uL Comprehensive Metabolic Panel 11/11/24 Range/Units 10:19 Sodium 143 (137-145) mmol/L Potassium 4.0 (3.5-5.1) mmol/L Chloride 110 H (98-107) mmol/L Carbon Dioxide 22 (22-30) mmol/L BUN 32 H (7-17) mg/dL Creatinine 1.68 H (0.52-1.04) mg/dL Glucose 68 L (74-99) mg/dL Calcium 9.8 (8.4-10.2) mg/dL AST 30 (14-36) U/L ALT 24 (4-34) U/L Alkaline Phosphatase 116 (38-126) U/L Total Protein 8.3 H (6.3-8.2) g/dL Albumin 4.6 (3.5-5.0) g/dL Current Medications Generic Name Dose Route Start Last Admin Trade Name Freq PRN Reason Stop Dose Admin Apixaban 2.5 mg 11/11/24 21:00 11/11/24 20:32 Apixaban 2.5 Mg Tablet PO 2.5 mg BID MARV Administration Protocol Flecainide Acetate 50 mg 11/11/24 21:00 11/11/24 20:32 Flecainide 50 Mg Tab PO 50 mg BID MARV Administration Diltiazem HCl 125 mg/ Dextrose 125 mls @ 5 mls/hr 11/11/24 15:45 11/11/24 15:56 /Water IV 5 mg/hr .Q24H MARV 5 mls/hr Administration Protocol 5 MG/HR Naloxone HCl 0.2 mg 11/11/24 15:33 Naloxone 0.4 Mg/Ml 1 Ml Vial IV Q2M PRN Opioid Reversal 11/11/24 10:19 11/11/24 10:19
[2024-11-12 10:32] LABS: Basophils # (A) 0.06 10*3/uL (0.00-0.10); Basophils % (A) 0.8 %; Eosinophils # (A) 0.14 10*3/uL (0.04-0.35); Eosinophils % (A) 1.8 %; HCT 37.3 % (37.2-46.3); HGB 12.2 g/dL (12.0-15.0); Lymphocytes # (A) 1.43 10*3/uL (0.90-5.00); Lymphocytes % (A) 18.4 %; MCH 31.3 pg (27.0-32.0); MCHC 32.7 g/dL (32.0-37.0); MCV 95.6 fL (80.0-97.0); Mean Platelet Volume 9.5 fL (9.5-12.2); Monocytes # (A) 0.28 10*3/uL (0.20-1.00); Monocytes % (A) 3.6 %; Neutrophils # (A) 5.82 10*3/uL (1.80-7.70); Platelet Count 251 10*3/uL (140-440); RDW 15.5 % (11.5-14.5); WBC 7.76 10*3/uL (4.50-10.00)
[2024-11-12 10:45] LABS: African American GFR (CKD) 40 (>60 ml/min/1.73 sqM); Anion Gap 10 mmol/L; Blood Urea Nitrogen 26 mg/dL (7-17); Calcium 9.6 mg/dL (8.4-10.2); Carbon Dioxide 20 mmol/L (22-30); Chloride 111 mmol/L (98-107); Glucose 135 mg/dL (74-99); Non-African American GFR(CKD) 34 (>60 ml/min/1.73 sqM); Potassium 4.1 mmol/L (3.5-5.1); Sodium 141 mmol/L (137-145)
--- NOTE | 2024-11-12 15:07 | P.HPIM ---
History of Present Illness H&P Date: 11/12/24 Patient is a 84-year-old female with atrial fibrillation (on Eliquis and flecainide), CKD, hyperlipidemia, hypertension, osteoarthritis, hypothyroidism here for evaluation of palpitations Patient reported that she experienced palpitations that have been intermittent in the past 2 weeks when she started monitoring her blood pressure with a cuff. Denied chest pain, palpitations, shortness of breath, abdominal pain, focal weakness, loss of consciousness, recent trauma or fall. Afib on telemetry. She drinks 3 cups of coffee daily. On admission: Vitals: Temp 97.6 F, VT 115, RR 16, BP 150/88, O2 saturation 97% on room air Labs: WBC 8.4, hemoglobin 13.4, platelet count 257, sodium 143, potassium 4, bicarb 22, BUN 23, creatinine 1.6, glucose 68, magnesium 1.1, troponins less than 0.0 12, TSH 3.8, liver enzymes within normal limits.. Imaging: EKG independently interpreted showed sinus tachycardia with a rate of 116 bpm, prolonged QRS interval of 161 MS, inverted T waves in V2 V3 and V4 and lead III, QTc 440 MS. ED documentation reviewed. Review of systems: Pertinent positives and negatives as discussed in HPI, a complete review of systems was performed and all other systems are negative. Social history: Tobacco: denied history of tobacco use Alcohol: rarely intake Physical examination: Vital signs reviewed General: non toxic, no distress, appears at stated age, room air Derm: no unusual rashes/lesions, warm Head: atraumatic, normocephalic, symmetric Eyes: EOMI, anicteric sclera, pupils equal round reactive to light ENT: Nose and ears atraumatic Neck: No cervical lymphadenopathy, trachea midline, supple Mouth: no lip lesion, mucus membranes moist Cardiovascular: S1S2 regular with 1 beat pauses, no murmur Lungs: CTA bilateral, no rhonchi, no rales, no accessory muscle use Abdominal: soft, nondistended, nontender to palpation, no guarding Ext: muscle strength 5 out of 5 in all 4 extremities grossly, no gross muscle atrophy, no contractures, positive dorsalis pedis pulse bilateral, no edema Neuro: CN II-XI grossly intact, no gross focal neuro deficits Psych: Alert and oriented x 3, appropriate affect and mood Assessment/Plan: The patient is admitted with an anticipated greater than 2 midnight stay for evaluation of atrial tachycardia Active: # Atrial tachycardia #Known Paroxysmal atrial fibrillation EKG independently interpreted showed sinus tachycardia with a rate of 116 bpm, prolonged QRS interval of 161 MS, inverted T waves in V2 V3 and V4 and lead III, QTc 440 MS Cardiac monitoring. Telemtery still having 1-beat pauses at this time. Supplemental oxygenation as needed Continue with home Eliquis IV Cardizem initiated in the ED. Transitioned to Cardizem 360 mg daily by cardiology Consult cardiology. Discontinued flecanide and metoprolol # CKD stage III at baseline Creatinine 1.68 Monitor for now Chronic Conditions: #Hyperlipidemia #Hypertension #Osteoarthritis #Hypothyroidism Resume Synthroid, Lipitor, furosemide DVT ppx: Eliquis 2.5 mg p.o. twice daily CODE STATUS: Full Discussed with: Patient Anticipated discharge place: Home Kandice Martinez MD PGY-1 Internal Medicine Dictation was produced using [employer] dictation software. please excuse any grammatical, word or spelling errors. Attestation: I have seen and examined this patient with my resident, assessment and plan discussed with the resident, agree with assessment and plan as written above. Dr. Villatoro Past Medical History Past Medical History: Atrial Fibrillation, Cancer, Eye Disorder, Hyperlipidemia, Hypertension, Osteoarthritis (OA), Pneumonia, Renal Disease, Thyroid Disorder Additional Past Medical History / Comment(s): L breast cancer with mastectomy, stage 1 R breast cancer-removed during bx, pneumonia with sepsis, lymphatic colitis - under control, glaucoma, macular degeneration, stage 3 kidney disease, intermittent edema to ankles by mid day. urinary frequency. History of Any Multi-Drug Resistant Organisms: None Reported Past Surgical History: Adenoidectomy, Cardiac Valve Replacement, Cholecystectomy, Heart Catheterization, Tonsillectomy Additional Past Surgical History / Comment(s): L mastectomy, R breast bx, bilateral cataracts, colonoscopy, endometrial cyst removed, mitral valve replacement 2015. November 2022 NATE/cardioversion. Past Anesthesia/Blood Transfusion Reactions: No Reported Reaction Past Psychological History: No Psychological Hx Reported Smoking Status: Former smoker - Past Family History Father Family Medical History: Cancer Additional Family Medical History / Comment(s): Father in his mid 70's of metastatic prostate cancer. Mother Family Medical History: No Reported History Additional Family Medical History / Comment(s): Mother at age 100yrs. Medications and Allergies Home Medications Medication Instructions Recorded Confirmed Type Latanoprost Ophth [Xalatan 0.005%] 1 drop BOTH EYES HS 11/28/22 11/11/24 History diphenhydrAMINE [Benadryl] 25 mg PO HS 11/28/22 11/11/24 History Apixaban [Eliquis] 2.5 mg PO BID 10/09/23 11/11/24 History Atorvastatin [Lipitor] 40 mg PO DAILY 10/09/23 11/11/24 History Dorzolamide 2% [Trusopt 2%] 1 drop BOTH EYES BID 10/09/23 11/11/24 History Furosemide [Lasix] 20 mg PO DAILY 10/09/23 11/11/24 History Vit C/E/Zn/Coppr/Lutein/Zeaxan 1 cap PO BID-W/MEALS 10/09/23 11/11/24 History [Preservision Areds 2 Softgel] Flecainide Acetate 50 mg PO Q12H 10/29/23 11/11/24 History Co Q-10(Unknown Dose) 1 cap PO DAILY 11/11/24 11/11/24 History Diclofenac Sodium Gel [Voltaren 1% 1 applic TOPICAL DAILY 11/11/24 11/11/24 History Gel] Diltiazem Cd [Cardizem CD] 240 mg PO DAILY 11/11/24 11/11/24 History Hair,Skin And Nails(Vitamin 1 tab PO DAILY 11/11/24 11/11/24 History D3/Magnesium/Vitamin C/Biotin) Levothyroxine Sodium [Synthroid] 75 mcg PO DAILY 11/11/24 11/11/24 History Vitamin B Complex 1 cap PO DAILY 11/11/24 11/11/24 History Allergies Allergy/AdvReac Type Severity Reaction Status Date / Time amiodarone Allergy Unknown Verified 11/12/24 10:28 latex Allergy red skin Verified 11/11/24 16:47 and itching metoprolol [From Lopressor] Allergy Dyspnea Verified 11/12/24 10:27 sotalol Allergy Dyspnea Verified 11/12/24 10:27 Physical Exam Vitals: Vital Signs Temp Pulse Pulse Resp BP Pulse Ox 11/12/24 06:00 66 17 144/63 96 11/12/24 02:43 98.1 F 94 20 157/84 96 11/12/24 01:00 98.1 F 74 17 141/59 94 L 11/11/24 20:34 98.1 F 89 19 154/64 96 11/11/24 18:00 71 16 158/86 96 11/11/24 16:05 115 H 11/11/24 16:00 74 16 145/74 96 11/11/24 13:51 80 151/92 96 11/11/24 12:26 110 H 18 156/94 98 11/11/24 09:36 97.6 F 115 H 16 150/88 97 Results CBC & Chem 7: 11/12/24 09:55 11/12/24 09:55 Labs: Abnormal Lab Results - Last 24 Hours (Table) 11/11/24 11/11/24 Range/Units 10:19 10:19 APTT 30.8 H (22.0-30.0) sec Chloride 110 H (98-107) mmol/L BUN 32 H (7-17) mg/dL Creatinine 1.68 H (0.52-1.04) mg/dL Glucose 68 L (74-99) mg/dL Total Protein 8.3 H (6.3-8.2) g/dL
[2024-11-12] MEDS: LATANOPROST 0.005% OPHTH DROPS 2.5 ML BTL BOTH EYES SCH (20:57)
[2024-11-13] MEDS: SODIUM CHLORIDE 0.9% 1,000 ML IV SCH ×3 (09:39)
--- NOTE | 2024-11-13 11:25 | P.PN ---
Subjective Progress Note Date: 11/13/24 The patient is an 84-year-old female who presented to the hospital with increased shortness of breath. Cardiology has been consulted for atrial tachycardia. Patient has a 2-1 atrial tachycardia, which appears to be resistant to calcium channel blockers. Patient has multiple drug intolerances, limiting antiarrhythmic therapy. Flecainide has been discontinued. Extensive conversation with the patient and her regarding plan of care. Dr. Wyatt recommends proceeding with a cardioversion, however it is unlikely the patient will remain in sinus rhythm thereafter. Long-term atrial tachycardia strategy will either be an extensive ablation versus pace and AV node ablation. Risks and benefits of both procedures have been discussed, however patient will follow-up with Dr. Wyatt outpatient for final recommendations Patient states she is still having palpitations with ambulation. No chest pain or pressure. GENERAL: Well-appearing, well-nourished and in no acute distress. NECK: Supple without JVD or thyromegaly. LUNGS: Breath sounds clear to auscultation bilaterally. Respiration equal and unlabored. No wheezes, rales or rhonchi. HEART: Regular rate and rhythm without murmurs, rubs or gallops. S1 and S2 heard. EXTREMITIES: Normal range of motion, no edema. No clubbing or cyanosis. Peripheral pulses intact and strong. TELEMETRY: Atrial tachycardia. Heart rates in the 70s to 80s at rest, up to 130s when ambulating LABS: WBC 7.7, hemoglobin 12.2, hematocrit 37.3, platelet 251, sodium 141, potassium 4.1, BUN 26, creatinine 1.40 IMPRESSION: Palpitations 2-1 atrial tachycardia History of atrial fibrillation/flutter Chronic kidney disease History of mitral valve replacement in 2016 in [place] Intolerance to beta-blockers including metoprolol and sotalol Adverse reactions to amiodarone resulting in elevated LFTs PLAN: Continue current medication regimen N.p.o. after midnight on Friday reparation for cardioversion Friday with Dr. Aragon Consideration for atrial tachycardia ablation, however this will be extensive due to her history of valve replacement. Alternative treatment strategy would be pacemaker implantation with AV node ablation. I am dictating on behalf of Dr Flaco Wyatt's history/physical and assessment/plan. Objective - Vital Signs Vital signs: Vital Signs Temp 97.6 F 11/13/24 08:00 Pulse 78 11/13/24 08:00 Resp 18 11/13/24 08:00 BP 150/81 11/13/24 08:00 Pulse Ox 96 11/13/24 08:00 FiO2 Intake & Output 11/12/24 11/13/24 11/13/24 18:59 06:59 18:59 Intake Total 20 Balance 20 Weight 60.781 kg 60.7 kg Intake: IV 20 Invasive Line 1 20 Other: Voiding Method Toilet Toilet # Voids 2 # Bowel Movements 1 - Labs CBC & Chem 7: 11/12/24 09:55 11/12/24 09:55 Labs: Abnormal Lab Results - Last 24 Hours (Table) 11/12/24 11/12/24 Range/Units 09:55 09:55 RBC 3.90 L (4.10-5.20) 10*6/uL Chloride 111 H (98-107) mmol/L Carbon Dioxide 20 L (22-30) mmol/L BUN 26 H (7-17) mg/dL Creatinine 1.40 H (0.52-1.04) mg/dL Glucose 135 H (74-99) mg/dL
--- NOTE | 2024-11-13 11:36 | P.EPCON ---
Electrophysiology Consult - EP Consult Electrophysiology Consult: Summary 84-year-old female with valvular heart disease status post mitral valve replacement in [place] Presenting with atrial tachycardia with RVR, difficult rate control Intolerant of amiodarone with LFT abnormalities Failed flecainide 50 mg twice daily On anticoagulation Plan Electrical cardioversion on Friday with Dr. 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 Patient has a bioprosthetic mitral valve Versus Conduction system pacing with AV junction modification Pros and cons of both approaches discussed
[2024-11-13] MEDS: VIT A,C & E-LUTEIN-MINERALS 1 EACH TAB PO SCH (17:07)
[2024-11-13] MEDS: diphenhydrAMINE 25 MG CAP PO SCH (19:57)
[2024-11-13] MEDS: DORZOLAMIDE HCL 2% DROPS 10 ML BTL BOTH EYES SCH (19:58)
[2024-11-14 07:29] LABS: Basophils # (A) 0.05 10*3/uL (0.00-0.10); Basophils % (A) 0.4 %; Eosinophils # (A) 0.19 10*3/uL (0.04-0.35); Eosinophils % (A) 1.7 %; HCT 35.3 % (37.2-46.3); HGB 11.7 g/dL (12.0-15.0); Lymphocytes # (A) 1.82 10*3/uL (0.90-5.00); Lymphocytes % (A) 16.2 %; MCH 31.5 pg (27.0-32.0); MCHC 33.1 g/dL (32.0-37.0); MCV 95.1 fL (80.0-97.0); Mean Platelet Volume 10.1 fL (9.5-12.2); Monocytes # (A) 0.93 10*3/uL (0.20-1.00); Monocytes % (A) 8.3 %; Neutrophils # (A) 8.19 10*3/uL (1.80-7.70); Neutrophils % (A) 73.1 %; Platelet Count 241 10*3/uL (140-440); RBC 3.71 10*6/uL (4.10-5.20); RDW 15.1 % (11.5-14.5); WBC 11.21 10*3/uL (4.50-10.00)
[2024-11-14 07:50] LABS: ALT 17 U/L (4-34); AST 21 U/L (14-36); African American GFR (CKD) 38 (>60 ml/min/1.73 sqM); Albumin 3.7 g/dL (3.5-5.0); Alkaline Phosphatase 95 U/L (38-126); Anion Gap 13 mmol/L; Blood Urea Nitrogen 32 mg/dL (7-17); Calcium 9.6 mg/dL (8.4-10.2); Carbon Dioxide 18 mmol/L (22-30); Chloride 110 mmol/L (98-107); Glucose 78 mg/dL (74-99); Non-African American GFR(CKD) 33 (>60 ml/min/1.73 sqM); Potassium 3.8 mmol/L (3.5-5.1); Sodium 141 mmol/L (137-145); Total Bilirubin 0.9 mg/dL (0.2-1.3); Total Protein 6.8 g/dL (6.3-8.2)
[2024-11-14] MEDS ORDERED: NON FORMULARY DRUG (Vitamin B Complex [Vitamin B Complex] 1 EACH Capsule) PO SCH (09:00)
[2024-11-14] MEDS ORDERED: CO Q10 PO SCH (09:00)
--- NOTE | 2024-11-14 09:35 | PN ---
PROGRESS NOTE DATE OF SERVICE: 11/13/2024 SUBJECTIVE: This is an 84-year-old woman, who was admitted with atrial tachycardia and paroxysmal atrial fibrillation, is slated for cardioversion. No chest pain. No palpitation. OBJECTIVE: VITAL SIGNS: On exam, pulse is 85, blood pressure 140/80, respirations 16. CHEST: Clear to auscultation. CARDIOVASCULAR: S1 and S2. ABDOMEN: Soft. LABORATORY DATA: Reviewed. ASSESSMENT: 1. Atrial tachycardia with rapid ventricular rate. 2. History of atrial fibrillation. 3. Chronic kidney disease, stage 3. 4. Hyperlipidemia. 5. Hypertension. RECOMMENDATIONS: Recommend to continue current management and repeat labs. Otherwise, I would also recommend closely follow with Cardiology for possible cardioversion on Friday by Cardiology Dr. Aragon, further recommendations to follow. MMODL / IJN: [id number] /
--- NOTE | 2024-11-14 23:56 | PN ---
PROGRESS NOTE DATE OF SERVICE: 11/14/2024 SUBJECTIVE: This is an 84-year-old woman, who was admitted with atrial tachycardia, slated to have cardioversion tomorrow. No chest pain. No palpitation. OBJECTIVE: VITAL SIGNS: Pulse 80, blood pressure 130/74, respirations 17. CHEST: Clear. CARDIOVASCULAR: S1 and S2. ABDOMEN: Soft. LABORATORY DATA: Creatinine 1.45. ASSESSMENT: 1. Atrial tachycardia with rapid ventricular rate. 2. History of atrial fibrillation. 3. Chronic kidney disease, stage 3. 4. Hyperlipidemia. 5. Hypertension. RECOMMENDATIONS: Recommend to continue current management and continue symptomatic treatment. Otherwise, recommend to repeat labs. Closely follow with Cardiology. Guarded prognosis. Further recommendations to follow. MMODL / IJN: [id number] /
[2024-11-15 06:37] LABS: Basophils # (A) 0.03 10*3/uL (0.00-0.10); Basophils % (A) 0.3 %; Eosinophils # (A) 0.14 10*3/uL (0.04-0.35); Eosinophils % (A) 1.6 %; HCT 35.2 % (37.2-46.3); HGB 11.8 g/dL (12.0-15.0); Lymphocytes # (A) 1.38 10*3/uL (0.90-5.00); Lymphocytes % (A) 15.7 %; MCH 31.5 pg (27.0-32.0); MCHC 33.5 g/dL (32.0-37.0); MCV 93.9 fL (80.0-97.0); Mean Platelet Volume 9.8 fL (9.5-12.2); Monocytes # (A) 0.78 10*3/uL (0.20-1.00); Monocytes % (A) 8.9 %; Neutrophils # (A) 6.43 10*3/uL (1.80-7.70); Neutrophils % (A) 73.3 %; Platelet Count 219 10*3/uL (140-440); RBC 3.75 10*6/uL (4.10-5.20); WBC 8.78 10*3/uL (4.50-10.00)
[2024-11-15 06:47] LABS: African American GFR (CKD) 34 (>60 ml/min/1.73 sqM); Anion Gap 9 mmol/L; Blood Urea Nitrogen 36 mg/dL (7-17); Calcium 9.2 mg/dL (8.4-10.2); Carbon Dioxide 23 mmol/L (22-30); Chloride 108 mmol/L (98-107); Glucose 83 mg/dL (74-99); Non-African American GFR(CKD) 30 (>60 ml/min/1.73 sqM); Sodium 140 mmol/L (137-145)
--- NOTE | 2024-11-15 07:43 | P.PN ---
Subjective Progress Note Date: 11/15/24 The patient was seen and evaluated this morning. She is in process of having cardioversion today for atrial tachycardia/atrial fibrillation and possibly an ablation for both as an outpatient. She is asymptomatic. She is hemodynamically stable. The physical examination is remarkable for irregular rhythm with a soft systolic murmur and clear breathing sounds bilaterally and no edema was noted Assessment Atrial tachycardia Atrial fibrillation/flutter Multiple comorbid conditions Plan Continue the current medical regimen including oral anticoagulation Proceed with cardioversion Consider ablation as an outpatient Objective - Vital Signs Vital signs: Vital Signs Temp 98.2 F 11/14/24 23:05 Pulse 81 11/15/24 04:55 Resp 16 11/15/24 04:55 BP 143/80 11/15/24 04:55 Pulse Ox 97 11/15/24 04:55 FiO2 Intake & Output 11/14/24 11/15/24 11/15/24 18:59 06:59 18:59 Intake Total 1560 30 Balance 1560 30 Weight 60.3 kg Intake: IV 30 Invasive Line 1 10 Invasive Line 2 20 Oral 1560 Other: Voiding Method Toilet Toilet # Voids 2 1 - Labs CBC & Chem 7: 11/15/24 05:15 11/15/24 05:15 Labs: Abnormal Lab Results - Last 24 Hours (Table) 11/14/24 11/15/24 11/15/24 Range/Units 06:13 05:15 05:15 RBC 3.75 L (4.10-5.20) 10*6/uL Hgb 11.8 L (12.0-15.0) g/dL Hct 35.2 L (37.2-46.3) % Chloride 110 H 108 H (98-107) mmol/L Carbon Dioxide 18 L (22-30) mmol/L BUN 32 H 36 H (7-17) mg/dL Creatinine 1.44 H 1.58 H (0.52-1.04) mg/dL
[2024-11-15 08:20] VITALS: TEMP 98.1
[2024-11-15] MEDS: IV FLUID CONTINUATION 1,000 ML IV ONE (10:13)
[2024-11-15] MEDS ORDERED: PROPOFOL 10 MG/ML 20 ML VIAL IV ONE (10:19)
[2024-11-15] MEDS ORDERED: LIDOCAINE 1% INJ 10MG/ML (20 ML MDV) ONE (10:19)
[2024-11-15 12:11] VITALS: BP 136/79; PULSE 75; RESP 18
--- NOTE | 2024-11-15 13:23 | P.PCN ---
Description of Procedure: Procedure performed: Synchronized cardioversion Moderate conscious sedation: Moderate conscious sedation was supplied by anesthesia, see separate report. Complications: none Indications: Aflutter with RVR PROCEDURE: After the risks, benefits and alternatives of the above mentioned procedure was explained in detail with the patient, informed consent was obtained. Patient was brought to the lab in a fasting state. Patient was given sedation by anesthesia, see separate report. Patient had not missed any anticoagulation and therefore patient underwent synchronized cardioversion x 1 with 200J with resultant sinus rhythm. Patient tolerated the procedure well. Patient was transferred to the post procedure area in stable and satisfactory condition.
--- NOTE | 2024-11-18 00:02 | P.DS ---
Providers Date of admission: 11/12/24 15:02 Expected date of discharge: 11/15/24 Attending physician: Anuja Barksdale Consults: 11/11/24 15:33 Consult Physician Urgent Consulting Provider: Flaco Wyatt Consult Reason/Comments: afib with rvr Do you want consulting provider notified?: Already Contacted Primary care physician: Roland Meehan Hospital Course: Final diagnosis # Atrial tachycardia status post cardioversion #Known Paroxysmal atrial fibrillation # CKD stage III at baseline #Hyperlipidemia history #Hypertension history #Osteoarthritis history #Hypothyroidism history DVT ppx GI prophylaxis Full code Discharge disposition Patient is being discharged in a stable condition with guarded prognosis to home. Patient will follow-up with Dr. Roland Meehan in the outpatient setting upon discharge. Patient is to continue with current medications and close outpatient follow-up with cardiology as scheduled. Total time taken is greater than 35 minutes. Hospital course This is a 84-year-old female who was recently admitted with atrial tachycardia with known paroxysmal atrial fibrillation and is status post evaluation by cardiology and underwent cardioversion. Patient will follow-up in the outpatient setting to discuss possible ablation. Patient has been cleared by cardiology and would like to go home. Please refer to cardiology consultation notes for further HPI. Currently no reports of chest pain, shortness of breath, or palpitations. Patient is afebrile. No reports of nausea or vomiting and patient is tolerating diet. Patient will be discharged home today. Guarded prognosis Physical exam: Gen: This is a 84-year-old female who is awake, alert and oriented x 3, well- developed, elderly appearing HEENT: Head is atraumatic, normocephalic. Pupils equal, round. Sclerae is anicteric. NECK: Supple. No JVD. No lymphadenopathy. No thyromegaly. LUNGS: Diminished breath sounds bilaterally otherwise clear to auscultation. No wheezes or rhonchi. No intercostal retractions. HEART: S1, S2 are muffled ABDOMEN: Soft. Bowel sounds are present. No masses. No tenderness. EXTREMITIES: No pedal edema. No calf tenderness. NEUROLOGICAL: Patient is awake, alert and oriented x3. Cranial nerves 2 through 12 are grossly intact. Please refer to medication reconciliation sheet for a list of medications. The impression and plan of care has been dictated by Kandice Negrete, Nurse Practitioner as directed. Dr. Shamir MD I have performed a history and examination and MDM of this patient, discussed the same with the dictator, and agree with the dictator's assessment and plan as written ,documented as a scribe. Based on total visit time, I have performed more than 50% of the visit. Patient Condition at Discharge: Stable Plan - Discharge Summary Discharge Rx Participant: No New Discharge Prescriptions: New Diltiazem Cd [Cardizem CD] 360 mg PO DAILY #60 cap Continue Latanoprost Ophth [Xalatan 0.005%] 1 drop BOTH EYES HS diphenhydrAMINE [Benadryl] 25 mg PO HS Apixaban [Eliquis] 2.5 mg PO BID Dorzolamide 2% [Trusopt 2%] 1 drop BOTH EYES BID Furosemide [Lasix] 20 mg PO DAILY Vitamin B Complex 1 cap PO DAILY Diclofenac Sodium Gel [Voltaren 1% Gel] 1 applic TOPICAL DAILY Atorvastatin [Lipitor] 40 mg PO DAILY Vit C/E/Zn/Coppr/Lutein/Zeaxan [Preservision Areds 2 Softgel] 1 cap PO BID- W/MEALS Hair,Skin And Nails(Vitamin D3/Magnesium/Vitamin C/Biotin) 1 tab PO DAILY Levothyroxine Sodium [Synthroid] 75 mcg PO DAILY Co Q-10(Unknown Dose) 1 cap PO DAILY Discontinued Flecainide Acetate 50 mg PO Q12H Diltiazem Cd [Cardizem CD] 240 mg PO DAILY Discharge Medication List Latanoprost Ophth [Xalatan 0.005%] 1 drop BOTH EYES HS 11/28/22 [History] diphenhydrAMINE [Benadryl] 25 mg PO HS 11/28/22 [History] Apixaban [Eliquis] 2.5 mg PO BID 10/09/23 [History] Atorvastatin [Lipitor] 40 mg PO DAILY 10/09/23 [History] Dorzolamide 2% [Trusopt 2%] 1 drop BOTH EYES BID 10/09/23 [History] Furosemide [Lasix] 20 mg PO DAILY 10/09/23 [History] Vit C/E/Zn/Coppr/Lutein/Zeaxan [Preservision Areds 2 Softgel] 1 cap PO BID- W/MEALS 10/09/23 [History] Co Q-10(Unknown Dose) 1 cap PO DAILY 11/11/24 [History] Diclofenac Sodium Gel [Voltaren 1% Gel] 1 applic TOPICAL DAILY 11/11/24 [History] Hair,Skin And Nails(Vitamin D3/Magnesium/Vitamin C/Biotin) 1 tab PO DAILY 11/11/24 [History] Levothyroxine Sodium [Synthroid] 75 mcg PO DAILY 11/11/24 [History] Vitamin B Complex 1 cap PO DAILY 11/11/24 [History] Diltiazem Cd [Cardizem CD] 360 mg PO DAILY #60 cap 11/15/24 [Rx] Follow up Appointment(s)/Referral(s): Roland Meehan MD [Primary Care Provider] - 1-2 days Flaco Wyatt MD [STAFF PHYSICIAN] - 1 Week Ambulatory/Diagnostic Orders: Basic Metabolic Panel [LAB.AMB] Time Frame: 3 Days, Location: None Selected Patient Instructions/Handouts: A-fib (Atrial Fibrillation) (DC), Cardioversion (DC) Activity/Diet/Wound Care/Special Instructions: Activity limited until follow-up Continue taking medications as prescribed Follow-up with primary care provider on discharge Follow-up with cardiology outpatient Discharge Disposition: HOME SELF-CARE
== END 2024-11-15 14:01 | disposition home or self-care (01) | DRG 310 ==
LOC: EC 09:21 → 3SCARD 15:35 → OBSVTOIN 11-12 15:02 → 3SCARD 11-12 17:17
PROVIDERS: ADMIT Hospitalist; ATTEND Hospitalist
PROC: 5A2204Z Restoration of Cardiac Rhythm, Single (ICD-10-PCS; principal; 2024-11-15 08:35)
DX: I48.0 Paroxysmal atrial fibrillation (principal); Z95.3 Presence of xenogenic heart valve; E03.9 Hypothyroidism, unspecified; N18.30 Chronic kidney disease, stage 3 unspecified; I12.9 Hypertensive chronic kidney disease with stage 1 through stage 4 chronic kidney disease, or unspecified chronic kidney disease; I48.92 Unspecified atrial flutter; I47.19 Other supraventricular tachycardia; M19.90 Unspecified osteoarthritis, unspecified site; E78.5 Hyperlipidemia, unspecified; Z79.01 Long term (current) use of anticoagulants; Z79.899 Other long term (current) drug therapy; Z87.891 Personal history of nicotine dependence; Z90.12 Acquired absence of left breast and nipple; Z79.890 Hormone replacement therapy; Z85.3 Personal history of malignant neoplasm of breast
CPT/HCPCS: 36415; 80048; 80053; 83735; 84443; 84484; 85025; 85610; 85730; 92960; 93005; 99285